=== PATIENT | male | born 1995 ===

== ENCOUNTER → 2025-05-10 | Outpatient (REF) | payer SELFPAY ==
[2025-05-10 10:34] LABS: SEMEN APPEARANCE OPAQUE (OPAQUE); SEMEN VISCOSITY LIQUID (LIQUID); SEMEN VOLUME 4.0 ml (2.0-5.0); SPERM CONCENTRATION 149.4 M/ml (>=15.0); WBC CONCENTRATION <=1 M/ml (<=1 M/ml)
[2025-05-10 10:35] LABS: TOTAL PROGRESSIVE SPERM 203.7 M/Ejac.
== END ==
LOC: M LAB REF 10:23
DX: Z31.41 Encounter for fertility testing (principal)